=== PATIENT | male | born 1945 | race Hispanic/Latino ===

== ENCOUNTER 2017-08-24 14:55 | Emergency (ER) | payer MEDICARE ==
[~2017-08-24] VITALS: Ht 172.7 cm; Wt 109.8 kg
[2017-08-24] MEDS ORDERED: IBUPROFEN 600 MG TAB PO STA (15:14)
[2017-08-24] MEDS ORDERED: ACETAMINOPHEN 325 MG TAB PO ONE (15:15)
[2017-08-24 15:48] LABS: BILIRUBIN,URINE NEGATIVE (NEGATIVE); KETONES,URINE NEGATIVE (NEGATIVE); LEUKOCYTE ESTERASE ,URINE 2+ (NEGATIVE); URINE UROBILINOGEN 1 mg/dL (0.2 - 1)
[2017-08-24 15:50] LABS: CLARITY,URINE SL CLOUDY (CLEAR); COLOR,URINE YELLOW (YELLOW); NITRITE,URINE POSITIVE (NEGATIVE); PROTEIN,URINE DIPSTICK 1+ (NEGATIVE)
[2017-08-24 16:03] LABS: BACTERIA,URINE MANY /HPF; EPITHELIAL CELLS,URINE FEW /LPF; RBC,URINE 21-50 /HPF (0-5)
[2017-08-24] MEDS ORDERED: SODIUM CHLORIDE 0.9% 1000ML 1,000 ML IV SCH (16:30)
[2017-08-24 16:36] LABS: BASOPHILS % 0.2 % (0.0-1.0); HEMATOCRIT 37.1 % (38.2-49.6); HEMOGLOBIN 13.1 g/dL (14.0-18.0); LYMPHOCYTES # (AUTO) 0.3 (1.0-3.2); LYMPHOCYTES % 2.3 % (18.0-39.1); MEAN CORPUSCULAR HEMOGLOBIN 29.8 pg (28-32); MEAN CORPUSCULAR HGB CONC 35.3 g/dL (31-35); MEAN CORPUSCULAR VOLUME 84.5 fL (81-99); MONOCYTES # (AUTO) 0.6 (0.2-0.8); MONOCYTES % 5.6 % (4.4-11.3); NEUTROPHILS # (AUTO) 9.9 (2.1-6.9); NEUTROPHILS % 91.5 % (38.7-80.0); PLATELET COUNT 122 x10e3/uL (140-360); RED BLOOD COUNT 4.39 x10e6/uL (4.3-5.7); RED CELL DISTRIBUTION WIDTH 13.2 % (11.7-14.4)
[2017-08-24] MEDS ORDERED: CEFTRIAXONE SOD 1 GM VIAL IV ONE (17:00)
--- NOTE | 2017-08-24 17:10 | Diagnostic Imaging Report ---
EXAMINATION: CHEST 2 VIEWS INDICATION: \S\ORDER PLACED BY \[id number] \S\1548 \S\Y COMPARISON: None FINDINGS: PA and lateral views TUBES and LINES: Left-sided chest port with tip overlying the mid SVC. LUNGS: Lungs are well inflated. Bibasilar atelectasis. There is no evidence of pneumonia or pulmonary edema. PLEURA: No pleural effusion or pneumothorax. HEART AND MEDIASTINUM: The cardiomediastinal silhouette is unremarkable.. BONES AND SOFT TISSUES: Multilevel degenerative changes of the thoracic spine. UPPER ABDOMEN: No free air under the diaphragm. IMPRESSION: Bibasilar atelectasis. No lobar consolidations. Signed by: Dr. Mikki Bella M.D. on 08/24/2017 5:07 PM
[2017-08-24 17:14] LABS: ALANINE AMINOTRANSFERASE 17 IU/L (0-55); ALBUMIN 3.7 g/dL (3.5-5.0); ALBUMIN/GLOBULIN RATIO 1.1 (0.8-2.0); ALKALINE PHOSPHATASE 55 IU/L (40-150); ANION GAP 13.6 mmol/L (8-16); BLOOD UREA NITROGEN 20 mg/dL (7-26); BUN/CREATININE RATIO 19 (6-25); CALCIUM 9.1 mg/dL (8.4-10.2); CARBON DIOXIDE 21 mmol/L (22-29); CHLORIDE 102 mmol/L (98-107); CREATININE, SERUM 1.08 mg/dL (0.72-1.25); EST GLOMERULAR FILTRATION RATE > 60 ML/MIN (60-); GLUCOSE 125 mg/dL (74-118); LIPASE 4 U/L (8-78); POTASSIUM 3.6 mmol/L (3.5-5.1); SODIUM 133 mmol/L (136-145)
== END 2017-08-24 17:45 | disposition home or self-care (01) ==
LOC: ER 14:55
DX: R50.9 Fever, unspecified (principal); N39.0 Urinary tract infection, site not specified; Z85.72 Personal history of non-Hodgkin lymphomas
CPT/HCPCS: 36415; 71020; 80053; 81001; 83690; 85025; 87086; 87186; 87400; 99283; J0696; J7030

== ENCOUNTER 2020-05-08 08:34 | Observation (INO) | payer MEDICARE ==
[~2020-05-08] VITALS: Ht 172.7 cm; Wt 108.0 kg
[2020-05-08 09:32] LABS: BASOPHILS # (AUTO) 0.1 (0.0-0.1); BASOPHILS % 0.7 % (0.0-1.0); EOSINOPHILS # (AUTO) 0.1 (0.0-0.4); EOSINOPHILS % 1.1 % (0.0-6.0); HEMATOCRIT 43.4 % (38.2-49.6); HEMOGLOBIN 14.9 g/dL (14.0-18.0); LYMPHOCYTES % 14.6 % (18.0-39.1); MEAN CORPUSCULAR HEMOGLOBIN 28.8 pg (28-32); MEAN CORPUSCULAR HGB CONC 34.3 g/dL (31-35); MEAN CORPUSCULAR VOLUME 83.9 fL (81-99); MONOCYTES # (AUTO) 0.4 (0.2-0.8); MONOCYTES % 5.8 % (4.4-11.3); NEUTROPHILS # (AUTO) 5.5 (2.1-6.9); NEUTROPHILS % 77.2 % (38.7-80.0); PLATELET COUNT 176 x10e3/uL (140-360); RED BLOOD COUNT 5.17 x10e6/uL (4.3-5.7); RED CELL DISTRIBUTION WIDTH 13.4 % (11.7-14.4)
[2020-05-08 09:42] LABS: INR 0.95; PROTHROMBIN TIME 13.2 seconds (11.9-14.5)
[2020-05-08 09:43] LABS: PARTIAL THROMBOPLASTIN TIME 27.9 seconds (23.8-35.5)
[2020-05-08 09:53] LABS: ALANINE AMINOTRANSFERASE 13 IU/L (0-55); ALBUMIN 4.7 g/dL (3.5-5.0); ALBUMIN/GLOBULIN RATIO 1.7 (0.8-2.0); ALKALINE PHOSPHATASE 70 IU/L (40-150); ANION GAP 15.1 mmol/L (8-16); BLOOD UREA NITROGEN 12 mg/dL (7-26); BUN/CREATININE RATIO 13 (6-25); CALCIUM 9.4 mg/dL (8.4-10.2); CARBON DIOXIDE 23 mmol/L (22-29); CHLORIDE 103 mmol/L (98-107); CREATINE KINASE 46 IU/L (30-200); CREATININE, SERUM 0.89 mg/dL (0.72-1.25); EST GLOMERULAR FILTRATION RATE > 60 ML/MIN (60-); GLUCOSE 131 mg/dL (74-118); POTASSIUM 4.1 mmol/L (3.5-5.1); SODIUM 137 mmol/L (136-145)
[2020-05-08] MEDS ORDERED: ONDANSETRON HCL INJ 2MG/ML 2ML 2 MG/ML VIAL IV PRN (10:00)
[2020-05-08] MEDS ORDERED: MORPHINE SULFATE 2 MG/ML SYR 1ML IV PRN (10:00)
[2020-05-08] MEDS ORDERED: ASPIRIN 81 MG CHEW TAB PO ONE (10:00)
--- NOTE | 2020-05-08 10:02 | Emergency Department Note ---
History of Present Illnes History of Present Illness Chief Complaint: Chest Pain History of Present Illness This is a 74 year old male Patient presented to the ER with complaint of inability to sleep x 2 nights despite taking Restoril 15 mg. Patient is Setswana speaking only and traige was completed using early head start teacher services. Patient states that when he takes the Restoril he wakes up with palpatations and anxiety. he also complains of chest pressure that has been intermittent since the beginning of the pandemic (~6 MONTHS), described as "pressure", lasts ~10 mins, + associated palpitaions, no radiation, no SOB/diaphoresis Historian: Patient Arrival Mode: Car Elevator Serviceman Required: No Onset (how long ago): month(s) (6) Location: substernal Quality: pressure Radiation: Reports non-radiation Severity: moderate Onset quality: gradual Timing of current episode: intermittent Progression: waxing and waning Chronicity: new Context: Denies recent illness Relieving factors: none Exacerbating factors: none Associated symptoms: Reports chest pain, Reports other (palpitations); Denies cough, Denies fever/chills, Denies shortness of breath Past Medical/Family History Physician Review I have reviewed the patient's past medical and family history. Any updates have been documented here. Past Medical History Recent Fever: No Clinical Suspicion of Infectio: No New/Unexplained Change in Ment: No Past Medical History: Hypertension Other Medical History: LYMPHOMA SKIN CA Other Surgery: CATARACT Social History Smoking Cessation: Never Smoker Counseling Performed: No Alcohol Use: None TB Exposure/Symptoms: No Physically hurt or threatened: No Family History Family history of heart diseas: No Other Last Tetanus: UTD Any Pre-Existing Lines (PICC,: No Review of Systems Review of Systems Constitutional: Reports as per HPI, Reports other (insomnia) EENTM: Reports no symptoms Cardiovascular: Reports as per HPI Respiratory: Reports no symptoms Gastrointestinal: Reports no symptoms Genitourinary: Reports no symptoms Musculoskeletal: Reports no symptoms Integumentary: Reports no symptoms Neurological: Reports no symptoms Psychological: Reports no symptoms Endocrine: Reports no symptoms Hematological/Lymphatic: Reports no symptoms Physical Exam Related Data Allergies: Coded Allergies: No Known Allergies (Unverified , 08/24/17) Triage Vital Signs Vital Signs Date Time Temp Pulse Resp B/P (MAP) Pulse Ox O2 Delivery O2 Flow Rate FiO2 05/08/20 09:32 98.1 59 19 113/65 98 Room Air Vital signs reviewed: Yes Physical Exam CONSTITUTIONAL Constitutional: Present well-developed, Present well-nourished HENT HENT: Present normocephalic, Present atraumatic, Present oropharynx clear/moist, Present nose normal HENT L/R: Present left ext ear normal, Present right ext ear normal EYES Eyes: Reports PERRL, Reports conjunctivae normal NECK Neck: Present ROM normal PULMONARY Pulmonary: Present effort normal, Present breath sounds normal CARDIOVASCULAR Cardiovascular: Present regular rhythm, Present heart sounds normal, Present capillary refill normal, Present normal rate GASTROINTESTINAL Abdominal: Present soft, Present nontender, Present bowel sounds normal GENITOURINARY Genitourinary: Present exam deferred SKIN Skin: Present warm, Present dry MUSCULOSKELETAL Musculoskeletal: Present ROM normal, Present edema (trace bilat LE edema) NEUROLOGICAL Neurological: Present alert, Present oriented x 3, Present no gross motor or sensory deficits PSYCHOLOGICAL Psychological: Present mood/affect normal, Present judgement normal Results Laboratory Result Diagram: 05/08/20 0913 Laboratory Laboratory Tests Test 05/08/20 10:27 05/08/20 09:50 05/08/20 09:13 Urine Color Yellow (YELLOW) Urine Clarity Hazy (CLEAR) Urine pH 7 (5 - 7) Urine Specific [place] 1.025 (1.010-1.025) Urine Protein Negative (NEGATIVE) Urine Glucose (UA) Negative (NEGATIVE) Urine Ketones Negative (NEGATIVE) Urine Blood Trace (NEGATIVE) Urine Nitrite Negative (NEGATIVE) Urine Bilirubin Negative (NEGATIVE) Urine Urobilinogen 0.2 mg/dL (0.2 - 1) Urine Leukocyte Esterase Small (NEGATIVE) Urine RBC 6-10 /HPF (0-5) Urine WBC 21-50 /HPF (0-5) Urine Epithelial Cells Few /LPF (NONE) Urine Bacteria Few /HPF (NONE) Urine Mucus Rare (RARE) White Blood Count 7.12 x10e3/uL (4.8-10.8) Red Blood Count 5.17 x10e6/uL (4.3-5.7) Hemoglobin 14.9 g/dL (14.0-18.0) Hematocrit 43.4 % (38.2-49.6) Mean Corpuscular Volume 83.9 fL (81-99) Mean Corpuscular Hemoglobin 28.8 pg (28-32) Mean Corpuscular Hemoglobin Concent 34.3 g/dL (31-35) Red Cell Distribution Width 13.4 % (11.7-14.4) Platelet Count 176 x10e3/uL (140-360) Neutrophils (%) (Auto) 77.2 % (38.7-80.0) Lymphocytes (%) (Auto) 14.6 % (18.0-39.1) Monocytes (%) (Auto) 5.8 % (4.4-11.3) Eosinophils (%) (Auto) 1.1 % (0.0-6.0) Basophils (%) (Auto) 0.7 % (0.0-1.0) Neutrophils # (Auto) 5.5 (2.1-6.9) Lymphocytes # (Auto) 1.0 (1.0-3.2) Monocytes # (Auto) 0.4 (0.2-0.8) Eosinophils # (Auto) 0.1 (0.0-0.4) Basophils # (Auto) 0.1 (0.0-0.1) Absolute Immature Granulocyte (auto 0.04 x10e3/uL (0-0.1) Prothrombin Time 13.2 seconds (11.9-14.5) Prothromb Time International Ratio 0.95 Activated Partial Thromboplast Time 27.9 seconds (23.8-35.5) Sodium Level 137 mmol/L (136-145) Potassium Level 4.1 mmol/L (3.5-5.1) Chloride Level 103 mmol/L (98-107) Carbon Dioxide Level 23 mmol/L (22-29) Anion Gap 15.1 mmol/L (8-16) Blood Urea Nitrogen 12 mg/dL (7-26) Creatinine 0.89 mg/dL (0.72-1.25) Estimat Glomerular Filtration Rate > 60 ML/MIN (60-) BUN/Creatinine Ratio 13 (6-25) Glucose Level 131 mg/dL (74-118) Calcium Level 9.4 mg/dL (8.4-10.2) Magnesium Level 2.0 MG/DL (1.3-2.1) Total Bilirubin 1.2 mg/dL (0.2-1.2) Aspartate Amino Transf (AST/SGOT) 12 IU/L (5-34) Alanine Aminotransferase (ALT/SGPT) 13 IU/L (0-55) Alkaline Phosphatase 70 IU/L (40-150) Creatine Kinase 46 IU/L (30-200) Creatine Kinase MB 0.60 ng/mL (0-5.0) Troponin I 0.011 ng/mL (0-0.300) B-Type Natriuretic Peptide 78.2 pg/mL (0-100) Total Protein 7.4 g/dL (6.5-8.1) Albumin 4.7 g/dL (3.5-5.0) Globulin 2.7 g/dL (2.3-3.5) Albumin/Globulin Ratio 1.7 (0.8-2.0) Thyroid Stimulating Hormone (TSH) 1.693 uIU/mL (0.350-4.940) Laboratory Tests Test 05/08/20 09:13 White Blood Count 7.12 x10e3/uL (4.8-10.8) Red Blood Count 5.17 x10e6/uL (4.3-5.7) Hemoglobin 14.9 g/dL (14.0-18.0) Hematocrit 43.4 % (38.2-49.6) Mean Corpuscular Volume 83.9 fL (81-99) Mean Corpuscular Hemoglobin 28.8 pg (28-32) Mean Corpuscular Hemoglobin Concent 34.3 g/dL (31-35) Red Cell Distribution Width 13.4 % (11.7-14.4) Platelet Count 176 x10e3/uL (140-360) Neutrophils (%) (Auto) 77.2 % (38.7-80.0) Lymphocytes (%) (Auto) 14.6 % (18.0-39.1) Monocytes (%) (Auto) 5.8 % (4.4-11.3) Eosinophils (%) (Auto) 1.1 % (0.0-6.0) Basophils (%) (Auto) 0.7 % (0.0-1.0) Neutrophils # (Auto) 5.5 (2.1-6.9) Lymphocytes # (Auto) 1.0 (1.0-3.2) Monocytes # (Auto) 0.4 (0.2-0.8) Eosinophils # (Auto) 0.1 (0.0-0.4) Basophils # (Auto) 0.1 (0.0-0.1) Absolute Immature Granulocyte (auto 0.04 x10e3/uL (0-0.1) Prothrombin Time 13.2 seconds (11.9-14.5) Prothromb Time International Ratio 0.95 Activated Partial Thromboplast Time 27.9 seconds (23.8-35.5) Lab results reviewed: Yes Imaging Imaging results reviewed: Yes Procedures 12 Lead ECG Interpretation ECG Interpretation : ECG: ECG 1 Elevator Serviceman: Interpreted by ED physician Date: May 08, 2020 Time: 09:16 Rhythm: sinus rhythm (with 1st degree AVB) Rate: normal BPM: 60 QRS axis: normal ST segments normal: Yes T waves normal: Yes Clinical Impression: abnormal ECG Assessment & Plan Medical Decision Making MDM pt presented initially c/o insomnia, with registered health nurse he explained that he is having intermittent CP "pressure" with assoc palpitations - cbc, chem, ecg, cardiacs, TSH, cxr - eval for STEMI/NSTEMI, dysrhythmia, electrolyte abnl, thyroid dysfunction, renal insuff, non-cardiac causes of CP Reassessment Reassessment Admit to Dr Dallas Riggins, observation Assessment & Plan Final Impression: (1) Chest pain (2) UTI (urinary tract infection) Depart Disposition: ADMITTED Last Vital Signs Date Time Temp Pulse Resp B/P (MAP) Pulse Ox O2 Delivery O2 Flow Rate FiO2 05/08/20 09:50 98.1 57 18 102/64 97 Room Air Medications in the ED Aspirin 81 mg NOW ONCE PO ; Start 05/08/20 at 10:00; Stop 05/08/20 at 10:01 Aspirin 81 mg QAM PO ; Start 05/09/20 at 09:00; Stop 06/08/20 at 08:59; Status UNV Morphine Sulfate 2 mg Q3H PRN IV MODERATE PAIN (4-6); Start 05/08/20 at 10:00; Stop 05/15/20 at 09:59; Status UNV WEST MORE MD May 08, 2020 10:02
[2020-05-08 10:12] LABS: THYROID STIMULATING HORMONE 1.693 uIU/mL (0.350-4.940)
[2020-05-08 10:40] LABS: CLARITY,URINE HAZY (CLEAR); COLOR,URINE YELLOW (YELLOW); KETONES,URINE NEGATIVE (NEGATIVE); LEUKOCYTE ESTERASE ,URINE SMALL (NEGATIVE); NITRITE,URINE NEGATIVE (NEGATIVE); PROTEIN,URINE DIPSTICK NEGATIVE (NEGATIVE)
[2020-05-08 10:41] LABS: BILIRUBIN,URINE NEGATIVE (NEGATIVE); URINE UROBILINOGEN 0.2 mg/dL (0.2 - 1)
[2020-05-08 10:50] LABS: WBC,URINE (MAN) 21-50 /HPF (0-5)
[2020-05-08 10:51] LABS: BACTERIA,URINE FEW /HPF; EPITHELIAL CELLS,URINE FEW /LPF; MUCUS,URINE RARE (RARE)
--- NOTE | 2020-05-08 10:51 | Diagnostic Imaging Report ---
EXAMINATION: CHEST SINGLE (PORTABLE) INDICATION: Chest pain. COMPARISON: Chest radiograph 08/24/2017. FINDINGS: TUBES and LINES: Left-sided chest port with tip overlying the mid SVC. LUNGS: Lungs are well inflated. Minimal patchy bibasilar opacities, likely atelectasis. No evidence of lobar consolidation or pulmonary edema. PLEURA: No pleural effusion or pneumothorax. HEART AND MEDIASTINUM: The cardiomediastinal silhouette is unremarkable.. BONES AND SOFT TISSUES: Multilevel degenerative changes of the thoracic spine. Surgical clips in the right axilla/breast. UPPER ABDOMEN: No free air under the diaphragm. IMPRESSION: No acute radiographic abnormality. Signed by: Dr. Joanna Britt MD on 05/08/2020 10:48 AM
[2020-05-08] MEDS: CEFTRIAXONE SOD 1 GM/NS 50 ML 50 ML IV SCH ×2 (11:13→23:15)
[2020-05-08 13:59] VITALS: BP 126/73
--- NOTE | 2020-05-08 13:59 | NUR ---
SBAR PHONE REPORT RECEIVED FROM ER NURSE. PATIENT RECEIVED VIA WHEELCHAIR AND AMBULATED TO BED IN NO ACUTE DISTRESS. PATIENT AAOX4 AND ABLE TO MAKE NEEDS KNOWN BUT PRIMARILY SPEAKS IRANIAN. PATIENT WAS EDUCATED ON FALL RISK PRECAUTION, UNIT, CALL LIGHT VIA SMALL CRAFT OPERATOR. PATIENT VOICED UNDERSTANDING. CALL LIGHT AND BELONGINGS PLACED NEARBY. WILL CONTINUE TO MONITOR.
[2020-05-08] MEDS ORDERED: FINASTERIDE5 MG PO (16:05)
[2020-05-08] MEDS ORDERED: OMEPRAZOLE40 MG PO (16:05)
[2020-05-08] MEDS ORDERED: FLOMAX0.4 MG PO (16:06)
[2020-05-08] MEDS ORDERED: TEMAZEPAM15 MG PO (16:08)
[2020-05-08] MEDS ORDERED: AMLODIPINE BESY10 MG PO (16:09)
[2020-05-08] MEDS ORDERED: BYSTOLIC10 MG PO (16:09)
--- OUTSIDE RECORDS SUMMARY | 2020-05-08 16:52 | XMS REPORT | Continuity of Care Document ---
Author Author [facility] t Organization [facility] Address [facility] Dr. Moreno [address] [place] [id number] Phone Unavailable Care Team Providers Care Wind Turbine Engineer Name Role Phone OBEY RIVERO Attvicky Unavailable AZ SANCHEZ Attphys Unavailable Nellie KEANE Attphys Unavailable OBEY RIVERO Admphykristen Unavailable Problems This patient has no known problems. Allergies, Adverse Reactions, Alerts This patient has no known allergies or adverse reactions. Medications This patient has no known medications. Procedures This patient has no known procedures. Encounters Start Date/Time End Date/Time Encounter Type Admission Type [facility] Care Department Encounter ID Source 2019-10-07 00:00:00 2019-10-07 00:00:00 Outpatient AZ SANCHEZ [facility] [id number] [facility] 2019-10-06 00:00:00 2019-10-06 00:00:00 Outpatient [place] SANCHEZ [facility] [id number] [facility] 2019-10-05 00:00:00 2019-10-05 00:00:00 Outpatient [place] SANCHEZ [facility] [id number] [facility] Results Test Description Test Time Test Comments Results Result Comments Source CHEST SINGLE (PORTABLE) 2020-05-08 10:45:00 [facility] [address] [place] [address] Patient Name: DAREK DAVALOS MR #: [id number] : 1945 Age/Sex: 74/M Req #: [id number] Adm Physician: OBEY RIVERO MD Ordered by: WEST MORE MD Report #: [id number] Location: [facility] Room/Bed: [place] [address] Procedure: [id number] DX/CHEST SINGLE (PORTABLE) Exam Date: 05/08/20 Exam Time: 928 REPORT STATUS: Signed EXAMINATION: CHEST SINGLE (PORTABLE) INDICATION: Chest pain. COMPARISON: Chest radiograph 08/24/2017. FINDINGS: TUBES and LINES: Left-sided chest port with tip overlying the mid SVC. LUNGS: Lungs are well inflated. Minimal pa tchy bibasilar opacities, likely atelectasis. No evidence of lobar consolidation or pulmonary edema. PLEURA: No pleural effusion or pneumothorax. HEART AND MEDIASTINUM: The cardiomediastinal silhouette is unremarkable.. BONES AND SOFT TISSUES: Multilevel degenerative changes of the thoracic spine. Surgical clips in the right axilla/breast. UPPER ABDOMEN: No free air under the diaphragm. IMPRESSION: No acute radiographic abnormality. Signed by: Dr. Noel Gonsales MD on 05/08/2020 10:48 AM Dictated By: NOEL GONSALES MD 47 Transcribed By: LINDSAY on 05/08/201047 COPY TO: WEST MORE MD CHEST 2 VIEWS [place] [address] Patient Name: DAREK DAVALOS MR #: [id number] : 1945 Age/Sex: 71/M Req #: [id number] Adm Physician: Ordered by: RADHA COX FIRE CONTROL MECHANIC Report #: [id number] Location: ER Room/Bed: Procedure: [id number] DX/CHEST 2 VIEWS Exam Date: 08/24/17 Exam Time: 1548 REPORT STATUS: Signed EXAMINATION: CHEST 2 VIEWS INDICATION: COMPARISON: None FINDINGS: PA and lateral views TUBES and LINES: Left-sided chest port with tip overlying the mid SVC. LUNGS: Lungs are well inflated. Bibasilar atelectasis. There is no evidence of pneumonia or pulmonary edema. PLEURA: No pleural effusion or pneumothorax. HEART AND MEDIASTINUM: The cardiomediastinal silhouette is unremarkable.. BONES AND SOFT TISSUES: Multilevel degenerative changes of the thoracic spine. UPPER ABDOMEN: No free air under the diaphragm. IMPRESSION: Bibasilar atelectasis. No lobar consolidations. Signed by: Dr. Lupe Baer M.D. on 08/24/2017 5:07 PM Dictated By: LUPE BAER MD 06 Transcribed By: LINDSAY on 08/24/171706 COPY TO: RADHA COX NP
[2020-05-08 17:05] VITALS: BP 132/74
[2020-05-08] MEDS ORDERED: ACETAMINOPHEN/CODEINE 300MG - 30MG TAB PO PRN (18:00)
[2020-05-08] MEDS ORDERED: NITROGLYCERIN 0.4 MG SUBL SL PRN (18:00)
[2020-05-08] MEDS ORDERED: DONNATAL/LIDOCAINE/MAALOX 30 ML SUSP PO ONE (18:00)
[2020-05-08 18:17] LABS: CREATINE KINASE 44 IU/L (30-200)
--- NOTE | 2020-05-08 18:57 | NUR ---
WALKING ROUNDS PERFORMED, RECEIVED PT AMBULATING IN ROOM, AAOX3, RR EVEN AND NON-LABORED, ON ROOM AIR. PT HAS STEADY GAIT. NO S/SX OF DISTRESS NOTED. LEFT PT LAYING SEMI FOWLERS IN BED, BED IN LOW LOCKED POSITION, SIDE RAILS UP X2 CALL LIGHT AND PHONE WITHIN REACH.
--- NOTE | 2020-05-08 19:46 | NUR ---
SPOKE WITH MD RIVERO CONCERNING PT REQUEST FOR HOME SLEEP AID. OK TO CONTINUE TEMAZEPAM.
[2020-05-08 20:00] VITALS: BP 134/79
[2020-05-08] MEDS ORDERED: FAMOTIDINE 20 MG/2 ML VIAL IV SCH (21:00)
[2020-05-08] MEDS ORDERED: TEMAZEPAM 15 MG CAP PO SCH (21:00)
--- NOTE | 2020-05-08 21:34 | NUR ---
PAGE PLACED FOR MD RIVERO WITH CONCERNS ABOUT PT REPORTING HE IS FEELING VERY ANXIOUS AND HAVING CHEST PALPATIONS. PT REPORTS THIS ANXIETY HAS BEEN ONGOING FOR 6 MONTHS AND HAS RECEIVED NO TREATMENT. WAITING FOR CALL BACK.
[2020-05-08 21:53] VITALS: BP 134/79
--- NOTE | 2020-05-08 21:59 | NUR ---
SPOKE TO MD RIVERO CONCERNING PT REQUEST FOR PROSTATE MEDICATIONS. NEW ORDERS RECEIVED.
[2020-05-08] MEDS ORDERED: FINASTERIDE 5 MG TAB PO SCH (22:15)
[2020-05-08] MEDS ORDERED: TAMSULOSIN HCL 0.4 MG CAP PO SCH (22:15)
[2020-05-08] MEDS: PAROXETINE HCL 20 MG TAB PO SCH (22:21)
[2020-05-08] MEDS ORDERED: IOPAMIDOL 370 MG/ML 200 ML INFUS..BTL INJ ONE (22:35)
[2020-05-08] MEDS ORDERED: SODIUM CHLORIDE 0.9% 50ML 50 ML ONE (22:36)
[2020-05-09] VITALS: BP 101/57
--- NOTE | 2020-05-09 00:03 | Diagnostic Imaging Report ---
EXAM: CT Chest WITH contrast (PE Protocol) INDICATION: ^CP COMPARISON: Same day chest x-ray TECHNIQUE: Chest was scanned utilizing a multidetector helical scanner from the lung apex through the level of the diaphragm after administration of IV contrast. Thin section reconstructions were obtained with special concentration on the pulmonary arteries. Coronal and sagittal reformations were obtained. Dose modulation, iterative reconstruction, and/or weight based adjustment of the mA/kV was utilized to reduce the radiation dose to as low as reasonably achievable. Pulmonary embolism protocol was performed. IV CONTRAST: 100 mL of Isovue-370 COMPLICATIONS: None RADIATION DOSE: Total DLP: 540.70 mGy*cm Estimated effective dose: (DLP x 0.014 x size factor) mSv CTDIvol has been reviewed. It is below the limits set by the Radiation Protocol Committee (RPC). FINDINGS: LINES/ TUBES: Left chest wall port with tip within inferior SVC. LUNGS AND AIRWAYS: No filling defect is identified within the pulmonary arteries to the segmental level. 6 mm left lower lobe lung nodule. Airways are normal. PLEURA: The pleural spaces are clear. HEART AND MEDIASTINUM: The thyroid gland is normal. No mediastinal, hilar or axillary lymphadenopathy. The heart is normal in size.. There is no pericardial effusion. . Main pulmonary artery measures 3.3 cm in diameter. Ectatic ascending thoracic aorta measuring 4.6 cm at the level of the right pulmonary artery. Mild atherosclerotic calcification of aorta and coronary arteries. UPPER ABDOMEN: Cholelithiasis. Bilateral adrenal calcifications, left greater than right. BONES: The visualized bony thorax is within normal limits. SOFT TISSUES: Unremarkable. IMPRESSION: No pulmonary emboli. 6 mm left lower lobe lung nodule. Recommend follow-up in 6 months to ensure stability. Additional ancillary findings as above. Signed by: Dr. Arvind Askew MD on 05/08/2020 11:59 PM
[2020-05-09 01:33] LABS: CREATINE KINASE MB 0.6 ng/mL (0-5.0)
[2020-05-09 04:00] VITALS: BP 118/76
[2020-05-09 05:50] LABS: BASOPHILS # (AUTO) 0.1 (0.0-0.1); BASOPHILS % 0.6 % (0.0-1.0); EOSINOPHILS # (AUTO) 0.1 (0.0-0.4); EOSINOPHILS % 0.9 % (0.0-6.0); HEMATOCRIT 43.2 % (38.2-49.6); HEMOGLOBIN 14.7 g/dL (14.0-18.0); LYMPHOCYTES # (AUTO) 1.3 (1.0-3.2); LYMPHOCYTES % 17.2 % (18.0-39.1); MEAN CORPUSCULAR HEMOGLOBIN 28.8 pg (28-32); MEAN CORPUSCULAR VOLUME 84.5 fL (81-99); MONOCYTES # (AUTO) 0.5 (0.2-0.8); MONOCYTES % 6.2 % (4.4-11.3); NEUTROPHILS # (AUTO) 5.7 (2.1-6.9); NEUTROPHILS % 74.5 % (38.7-80.0); PLATELET COUNT 181 x10e3/uL (140-360); RED BLOOD COUNT 5.11 x10e6/uL (4.3-5.7); RED CELL DISTRIBUTION WIDTH 13.5 % (11.7-14.4)
[2020-05-09 06:02] LABS: ALANINE AMINOTRANSFERASE 12 IU/L (0-55); ALBUMIN 4.4 g/dL (3.5-5.0); ALBUMIN/GLOBULIN RATIO 1.8 (0.8-2.0); ALKALINE PHOSPHATASE 58 IU/L (40-150); ANION GAP 13.8 mmol/L (8-16); BLOOD UREA NITROGEN 15 mg/dL (7-26); BUN/CREATININE RATIO 15 (6-25); CALCIUM 9.3 mg/dL (8.4-10.2); CARBON DIOXIDE 22 mmol/L (22-29); CHLORIDE 104 mmol/L (98-107); CHOL/HDL RATIO 2.9 (3.9-4.7); CHOLESTEROL 143 MD/DL (0-199); CREATININE, SERUM 0.98 mg/dL (0.72-1.25); EST GLOMERULAR FILTRATION RATE > 60 ML/MIN (60-); GLUCOSE 127 mg/dL (74-118); HDL CHOLESTEROL 50 MG/DL (40-60); LDL CHOLESTEROL 78 MG/DL (60-130); POTASSIUM 3.8 mmol/L (3.5-5.1); SODIUM 136 mmol/L (136-145); TRIGLYCERIDES 77 MG/DL (0-149)
[2020-05-09] MEDS ORDERED: FAMOTIDINE 20 MG TAB PO SCH (07:30)
[2020-05-09 07:31] VITALS: BP 96/61
[2020-05-09 08:00] VITALS: BP 128/75
[2020-05-09] MEDS: PAROXETINE HCL 20 MG TAB PO SCH (08:23)
[2020-05-09 08:55] VITALS: BP 128/75
[2020-05-09] MEDS ORDERED: AMLODIPINE BESYLATE 10 MG TAB PO SCH (09:00)
[2020-05-09] MEDS ORDERED: NEBIVOLOL 10 MG TAB PO SCH (09:00)
[2020-05-09] MEDS ORDERED: ASPIRIN 81 MG ENTERIC COATED PO SCH (09:00)
[2020-05-09] MEDS ORDERED: PANTOPRAZOLE SOD 40 MG TABEC PO SCH (09:00)
--- NOTE | 2020-05-09 09:31 | Progress Note ---
DATE: 05/09/2020 Cardiology Consultation REASON FOR CONSULTATION: Chest pain. HISTORY OF PRESENT ILLNESS: Pleasant 74-year-old man with history of morbid obesity and anxiety, presents with complaints of abdominal discomfort, palpitations, and increased anxiety. He reported fleeting episode of chest discomfort occurring while at rest, fleeting, lasting seconds at a time to minute at a time, unaffected by exertion, position, inspiration or meals, exacerbated by increased anxiety. Symptoms have been ongoing since onset of pandemic. He denies any fevers, shortness of breath, cough, or diaphoresis. He has no other complaints. He was given Tylenol overnight and Paxil with improvement in symptoms. He reports no current complaints. REVIEW OF SYSTEMS: A 12-system review negative except for as noted above. PAST MEDICAL HISTORY: Remarkable for morbid obesity, remote history of lymphoma, skin cancer, cataract, and negative for personal history of cardiovascular disease, diabetes, or dyslipidemia. He does report history of hypertension. SOCIAL HISTORY: No smoking, alcohol, or drugs. FAMILY HISTORY: Noncontributory. PHYSICAL EXAMINATION: VITAL SIGNS: Temperature 98.6, heart rate 62, respiratory rate 18, blood pressure 96/61, and O2 saturation 99% on room air. GENERAL: No acute distress. Alert. NECK: No JVD. CHEST: Clear to auscultation. CARDIOVASCULAR: Regular rate and rhythm. Normal S1 and S2. No S3. No S4. No murmurs. No rubs. ABDOMEN: Soft. Bowel sounds positive. EXTREMITIES: No edema. Warm extremities. CARDIOVASCULAR MEDICATIONS: Reviewed. Aspirin 81 mg daily, nebivolol 5 mg daily, amlodipine 10 mg daily, and Nitrostat p.r.n. STUDIES: Reviewed. White blood cells 7.7, hemoglobin 14.7, and platelets 181. INR 0.95, PT 13.2, and PTT 27.9. Sodium 136, potassium 3.8, chloride 104, bicarbonate 22, BUN 15, creatinine 0.98, glucose 127, and calcium 9.3. Total bilirubin is 0.9, AST 10, ALT 12, and alkaline phosphatase 58. Troponin I negative x3. BNP 78. Total protein 6.9 and albumin 4.4. Coronavirus PCR pending. Sinus rhythm, telemetry. EKG, sinus rhythm, first-degree AV block. ASSESSMENT AND PLAN: A 74-year-old man presents with fleeting atypical chest discomfort in the setting of anxiety, history of hypertension. RECOMMEND: Continue nebivolol and amlodipine. Continue aspirin. Has ruled out with serial cardiac biomarkers for AMI. Imaging studies are remarkable for some atelectasis. No PE. A 6 mm left lower lobe lung nodule, for which outpatient imaging at 6 months is advised. Coronary calcifications and calcifications in the aorta noted on CT. Recommend chest discomfort pattern atypical for cardiac etiology. Predominant issue with Mr. Khan at this point is anxiety. Continue current cardiovascular medications and add statin therapy given coronary calcifications on CT. Outpatient followup advised in 2 weeks. Outpatient stress test advised. Chris Wells MD AFCorina/MODL /[id number]
--- NOTE | 2020-05-09 09:43 | NUR ---
PATIENT DISCHARGED HOME VIA PRIVATE VEHICLE. PERIPHERAL IV WAS DISCONTINUED VIA ASCEPTIC TECHNIQUE. CATHETER TIP INTACT AND REMOVED WITHOUT RESISTANCE. DRY DRESSING APPLIED. PT TOLERATED WELL. PATIENT RECEIVED DISCHARGE SUMMARY, WRITTEN PRESCRIPTIONS X3, EDUCATION SHEETS IN INDONESIAN, AND INSTRUCTIONS FOR F/U APPOINTMENTS.
[2020-05-09] MEDS ORDERED: ATORVASTATIN 40 MG TAB PO SCH (21:00)
--- NOTE | 2020-05-09 21:05 | Discharge Summary ---
PRIMARY CARE PHYSICIAN: . CONSULTING PHYSICIAN: Dr. Chris Wells. The patient placed on observation on May 08, 2020. FINAL DIAGNOSES: 1. Atypical chest pain secondary to most likely anxiety disorder, much improved with Paxil. 2. Urinary tract infection due to enlarged prostate. The patient is already on finasteride and Flomax. 3. Reflux, on omeprazole 20 mg with add on 20 mg Pepcid twice a day. 4. Baseline hypertension, stable. SUMMARY: The patient is a 74-year-old male, came into the hospital because of anxiety attack. He could not sleep for 2 to 3 nights. He was already getting temazepam 15 mg at night. The patient is otherwise stable. Cardiac enzyme was negative. Echocardiogram showed ejection fraction normal. EKG normal sinus rhythm with first-degree AV block. The patient is stable. No chest pain. No shortness of breath. The patient's urinalysis shown he has a few bacteria with wbc of 21 to 50, hazy color, yellow with trace blood. Negative ketones. Small leukocyte esterase. The patient was stable. He had a CTA of the chest, showed that he has no pulmonary embolism. There is a small 6 mm left lower lobe lung nodule. Recommend the patient to repeat a CT scan in approximately 6 months to ensure stability. The patient is otherwise stable. I have a claims auditor discussed with the patient regarding very small pulmonary nodule. The patient may repeat the CT scan at a later date with his family physician. I will send a family physician a note. The patient is stable today. Resume home medications. Cipro 500 mg twice a day for 7 days, Paxil 10 mg twice a day, Pepcid 20 mg b.i.d. before meals. The patient is stable. He will go home today. Follow up with his family physician in approximately 1 to 2 weeks. Follow up with Dr. Casillas in approximately 1 to 2 weeks. The patient is otherwise stable. Resume home diet. Follow up as instructed. MD AARON Carter/CHIQUI /[id number]
== END 2020-05-09 09:45 | disposition home or self-care (01) ==
LOC: ER 09:01 → ERHOLD 09:50 → MED/SURG 14:26
PROVIDERS: ADMIT Internal Medicine; ATTEND Internal Medicine
DX: R07.89 Other chest pain (principal); I10 Essential (primary) hypertension; N39.0 Urinary tract infection, site not specified; E66.9 Obesity, unspecified; Z68.36 Body mass index [BMI] 36.0-36.9, adult; G47.00 Insomnia, unspecified; F41.9 Anxiety disorder, unspecified; N40.0 Benign prostatic hyperplasia without lower urinary tract symptoms; K21.9 Gastro-esophageal reflux disease without esophagitis
CPT/HCPCS: 36415; 71045; 71260; 80053 ×2; 80061; 81001; 82550 ×2; 82553 ×2; 83735; 83880; 84443; 84484 ×2; 85025 ×2; 85610; 85730; 87086; 93005; 99284; G0378 ×2; J0696; Q9967; S0164; U0002

== ENCOUNTER 2022-05-03 16:27 | Emergency (ER) | payer MEDICARE ==
[~2022-05-03] VITALS: Ht 170.2 cm; Wt 103.4 kg
[~2022-05-03 16:27] MED LIST: AMLODIPINE BESY10 MG PO; BYSTOLIC10 MG PO; FINASTERIDE5 MG PO; FLOMAX0.4 MG PO; OMEPRAZOLE40 MG PO; TEMAZEPAM15 MG PO
[2022-05-03 17:16] LABS: BASOPHILS % 0.4 % (0.0-1.0); EOSINOPHILS # (AUTO) 0.1 (0.0-0.4); EOSINOPHILS % 1.1 % (0.0-6.0); HEMATOCRIT 40.7 % (38.2-49.6); HEMOGLOBIN 13.5 g/dL (14.0-18.0); LYMPHOCYTES % 27.2 % (18.0-39.1); MEAN CORPUSCULAR HEMOGLOBIN 29.2 pg (28-32); MEAN CORPUSCULAR HGB CONC 33.2 g/dL (31-35); MEAN CORPUSCULAR VOLUME 88.1 fL (81-99); MONOCYTES # (AUTO) 0.5 (0.2-0.8); MONOCYTES % 7.2 % (4.4-11.3); NEUTROPHILS # (AUTO) 4.6 (2.1-6.9); NEUTROPHILS % 63.7 % (38.7-80.0); PLATELET COUNT 207 x10e3/uL (140-360); RED BLOOD COUNT 4.62 x10e6/uL (4.3-5.7); RED CELL DISTRIBUTION WIDTH 13.5 % (11.7-14.4)
[2022-05-03 17:38] LABS: ALBUMIN 4.1 g/dL (3.5-5.0); ALBUMIN/GLOBULIN RATIO 1.3 (0.8-2.0); ANION GAP 14.3 mmol/L (8-16); CALCIUM 9.3 mg/dL (8.4-10.2); CREATININE, SERUM 1.08 mg/dL (0.72-1.25); POTASSIUM 4.3 mmol/L (3.5-5.1)
[2022-05-03 17:55] LABS: COLOR,URINE YELLOW (YELLOW); KETONES,URINE NEGATIVE (NEGATIVE); LEUKOCYTE ESTERASE ,URINE SMALL (NEGATIVE); NITRITE,URINE NEGATIVE (NEGATIVE); PROTEIN,URINE DIPSTICK NEGATIVE (NEGATIVE)
[2022-05-03 17:56] LABS: CLARITY,URINE SL CLOUDY (CLEAR); URINE UROBILINOGEN 0.2 mg/dL (0.2 - 1)
[2022-05-03 18:15] LABS: BACTERIA,URINE MODERATE /HPF; EPITHELIAL CELLS,URINE RARE /LPF; RBC,URINE 0-5 /HPF (0-5)
[2022-05-03] MEDS ORDERED: CEFDINIR300 MG PO (19:24)
[2022-05-03 19:53] VITALS: BP 124/72
== END 2022-05-03 19:55 | disposition home or self-care (01) ==
LOC: ER 16:45
DX: R50.9 Fever, unspecified (principal); N39.0 Urinary tract infection, site not specified; R19.7 Diarrhea, unspecified; I10 Essential (primary) hypertension; Z85.72 Personal history of non-Hodgkin lymphomas; Z85.828 Personal history of other malignant neoplasm of skin; Z93.3 Colostomy status
CPT/HCPCS: 36415; 80053; 81001; 83690; 85025; 99283

== ENCOUNTER 2022-09-27 13:17 | Emergency (ER) | payer MEDICARE ==
[~2022-09-27] VITALS: Ht 162.6 cm; Wt 106.1 kg
[~2022-09-27 13:17] MED LIST changes: +CEFDINIR300 MG PO
[2022-09-27] MEDS ORDERED: ONDANSETRON HCL INJ 2MG/ML 2ML 2 MG/ML VIAL IV STA (13:31)
[2022-09-27] MEDS ORDERED: SODIUM CHLORIDE 0.9% 1000ML 1,000 ML IV STA (13:31)
[2022-09-27 13:54] LABS: BASOPHILS % 0.6 % (0.0-1.0); EOSINOPHILS # (AUTO) 0.1 (0.0-0.4); EOSINOPHILS % 1.5 % (0.0-6.0); HEMOGLOBIN 14.1 g/dL (14.0-18.0); LYMPHOCYTES # (AUTO) 2.1 (1.0-3.2); LYMPHOCYTES % 31.2 % (18.0-39.1); MEAN CORPUSCULAR HEMOGLOBIN 28.8 pg (28-32); MEAN CORPUSCULAR HGB CONC 33.6 g/dL (31-35); MEAN CORPUSCULAR VOLUME 85.9 fL (81-99); MONOCYTES # (AUTO) 0.5 (0.2-0.8); MONOCYTES % 7.6 % (4.4-11.3); NEUTROPHILS # (AUTO) 3.9 (2.1-6.9); NEUTROPHILS % 58.4 % (38.7-80.0); PLATELET COUNT 182 x10e3/uL (140-360); RED BLOOD COUNT 4.89 x10e6/uL (4.3-5.7); RED CELL DISTRIBUTION WIDTH 13.3 % (11.7-14.4)
[2022-09-27 14:24] LABS: ALBUMIN 4.1 g/dL (3.5-5.0); ALBUMIN/GLOBULIN RATIO 1.4 (0.8-2.0); ANION GAP 12.6 mmol/L (8-16); CALCIUM 9.3 mg/dL (8.4-10.2); CREATININE, SERUM 1.01 mg/dL (0.72-1.25); POTASSIUM 4.6 mmol/L (3.5-5.1)
[2022-09-27 14:30] LABS: CREATINE KINASE MB 0.9 ng/mL (0-5.0)
[2022-09-27] MEDS ORDERED: IOPAMIDOL 370 MG/ML 100 ML INFUS..BTL INJ ONE (14:51)
[2022-09-27 16:24] LABS: CLARITY,URINE SL CLOUDY (CLEAR); COLOR,URINE YELLOW (YELLOW); KETONES,URINE NEGATIVE (NEGATIVE); LEUKOCYTE ESTERASE ,URINE SMALL (NEGATIVE); NITRITE,URINE NEGATIVE (NEGATIVE); PROTEIN,URINE DIPSTICK NEGATIVE (NEGATIVE); URINE UROBILINOGEN 0.2 mg/dL (0.2 - 1)
[2022-09-27 16:39] LABS: BACTERIA,URINE MODERATE /HPF; RBC,URINE 0-5 /HPF (0-5)
[2022-09-27] MEDS ORDERED: CEFDINIR300 MG PO (17:53)
[2022-09-27] MEDS ORDERED: ONDANSETRON ODT4 MG PO (17:53)
== END 2022-09-27 18:35 | disposition home or self-care (01) ==
LOC: ER 13:21
DX: R42 Dizziness and giddiness (principal); R07.9 Chest pain, unspecified; N39.0 Urinary tract infection, site not specified; R10.30 Lower abdominal pain, unspecified; K80.20 Calculus of gallbladder without cholecystitis without obstruction; N40.0 Benign prostatic hyperplasia without lower urinary tract symptoms; I10 Essential (primary) hypertension; Z20.822 Contact with and (suspected) exposure to COVID-19; R94.31 Abnormal electrocardiogram [ECG] [EKG]; Z85.828 Personal history of other malignant neoplasm of skin; Z93.3 Colostomy status
CPT/HCPCS: 36415; 71046; 74177; 80053; 81001; 82550; 82553; 83690; 83880; 84484; 85025; 87086; 87186; 93005; 99284; J0696; J2405; J7030; Q9967; U0002

== ENCOUNTER 2022-11-29 07:43 | Emergency (ER) | payer MEDICARE ==
[~2022-11-29] VITALS: Ht 162.6 cm; Wt 106.1 kg
[~2022-11-29 07:43] MED LIST changes: +ONDANSETRON ODT4 MG PO
[2022-11-29] MEDS ORDERED: SODIUM CHLORIDE 0.9% 1000ML 1,000 ML IV STA (08:21)
[2022-11-29 08:29] LABS: BASOPHILS % 0.2 % (0.0-1.0); HEMATOCRIT 40.4 % (38.2-49.6); HEMOGLOBIN 13.8 g/dL (14.0-18.0); LYMPHOCYTES # (AUTO) 0.8 (1.0-3.2); LYMPHOCYTES % 18.8 % (18.0-39.1); MEAN CORPUSCULAR HEMOGLOBIN 28.8 pg (28-32); MEAN CORPUSCULAR HGB CONC 34.2 g/dL (31-35); MEAN CORPUSCULAR VOLUME 84.3 fL (81-99); MONOCYTES # (AUTO) 0.3 (0.2-0.8); MONOCYTES % 7.8 % (4.4-11.3); NEUTROPHILS # (AUTO) 2.9 (2.1-6.9); NEUTROPHILS % 71.7 % (38.7-80.0); PLATELET COUNT 162 x10e3/uL (140-360); RED BLOOD COUNT 4.79 x10e6/uL (4.3-5.7); RED CELL DISTRIBUTION WIDTH 13.4 % (11.7-14.4)
[2022-11-29 08:50] LABS: ALBUMIN 3.9 g/dL (3.5-5.0); ALBUMIN/GLOBULIN RATIO 1.3 (0.8-2.0); ANION GAP 13.5 mmol/L (8-16); CALCIUM 8.6 mg/dL (8.4-10.2); MAGNESIUM 1.9 MG/DL (1.3-2.1); POTASSIUM 3.5 mmol/L (3.5-5.1)
[2022-11-29] MEDS ORDERED: DICYCLOMINE HCL20 MG PO (09:20)
[2022-11-29 10:02] VITALS: BP 106/59
== END 2022-11-29 09:50 | disposition home or self-care (01) ==
LOC: ER 07:48
DX: R19.7 Diarrhea, unspecified (principal); I10 Essential (primary) hypertension; Z85.828 Personal history of other malignant neoplasm of skin
CPT/HCPCS: 36415; 80053; 83690; 83735; 85025; 99283; J7030

== ENCOUNTER 2025-05-29 14:06 | Emergency (ER) | payer MEDICARE ==
[~2025-05-29] VITALS: Ht 172.7 cm; Wt 104.3 kg
[~2025-05-29 14:06] MED LIST changes: +DICYCLOMINE HCL20 MG PO
[2025-05-29 14:22] VITALS: PULSE 62; RESP 18; TEMP 98.3
[2025-05-29] MEDS ORDERED: SODIUM CHLORIDE 0.9% 1000ML 1,000 ML IV STA (14:31)
[2025-05-29 14:39] LABS: BASOPHILS % 0.3 % (0.0-1.0); EOSINOPHILS % 0.1 % (0.0-6.0); LYMPHOCYTES % 16.6 % (18.0-39.1); MONOCYTES % 5.9 % (4.4-11.3); NEUTROPHILS % 76.7 % (38.7-80.0); RED CELL DISTRIBUTION WIDTH 13.2 % (11.7-14.4)
[2025-05-29] MEDS ORDERED: DICYCLOMINE HCL 20 MG/2 ML VIAL IM ONE (14:45)
[2025-05-29 14:48] LABS: EPITHELIAL CELLS,URINE FEW /LPF; LEUKOCYTE ESTERASE ,URINE SMALL (NEGATIVE); PROTEIN,URINE DIPSTICK NEGATIVE (NEGATIVE); URINE UROBILINOGEN 0.2 mg/dL (0.2 - 1)
[2025-05-29 14:51] LABS: INR 1.07
[2025-05-29 14:59] LABS: EST GLOMERULAR FILTRATION RATE 78.0 ML/MIN (>=60)
[2025-05-29] MEDS ORDERED: CEFDINIR300 MG PO (15:12)
[2025-05-29] MEDS ORDERED: PYRIDIUM100 MG PO (15:12)
[2025-05-29] MEDS ORDERED: DICYCLOMINE HCL20 MG PO (15:12)
[2025-05-29 16:08] VITALS: BP 129/84; PULSE 76; RESP 18; TEMP 98; O2SAT 98
== END 2025-05-29 15:30 | disposition home or self-care (01) ==
LOC: ER 14:11
DX: R10.32 Left lower quadrant pain (principal); N39.0 Urinary tract infection, site not specified; I10 Essential (primary) hypertension; K21.9 Gastro-esophageal reflux disease without esophagitis; Z93.3 Colostomy status; Z85.72 Personal history of non-Hodgkin lymphomas
CPT/HCPCS: 36415; 80053; 81001; 83690; 83735; 85025; 85610; 85730; 87086; 87186; 99284